=== PATIENT | male | born 1945 | race African-American/Black ===

== ENCOUNTER 2020-12-19 04:13 | Day surgery (SDC) | payer BC, OTHER ==
[2020-12-17 17:36] VITALS: BMI 22.8
[2020-12-19 10:30] LABS: PH,URINE 5.5 (5.0-8.0); URINE APPEARANCE Clear; URINE BILIRUBIN Negative (NEGATIVE); URINE COLOR Yellow; URINE GLUCOSE (UA) Negative (NEGATIVE); URINE KETONE Negative (NEGATIVE); URINE LEUK ESTERASE 1+ (NEGATIVE); URINE NITRITE Negative (NEGATIVE); URINE PROTEIN 1+ (NEGATIVE); URINE UROBILINOGEN 0.2 mg/dL (0.2-1.0)
[2020-12-19] MEDS ORDERED: BACITRACIN 15 GM TUBE TOPICAL OINTMENT ONE (11:22)
[2020-12-19] MEDS ORDERED: MIDAZOLAM HCL 2 MG/2 ML SINGLE DOSE VIAL ONE (12:17)
[2020-12-19] MEDS ORDERED: PROPOFOL 20 ML ONE ×2 (12:17→13:01)
[2020-12-19] MEDS ORDERED: ceFAZolin SODIUM 1 GM VIAL IVPB ONE (12:56)
[2020-12-19] MEDS ORDERED: ceFAZolin SODIUM 1 GM VIAL ONE (12:59)
[2020-12-19] MEDS ORDERED: DEXAMETHASONE SOD PHOSPHATE 4 MG/1 ML VIAL ONE (12:59)
[2020-12-19] MEDS ORDERED: ePHEDrine SULFATE 50 MG/1 ML AMPULE ONE (13:07)
[2020-12-19] MEDS ORDERED: ROCURONIUM BROMIDE 50 MG/5 ML SYRINGE ONE (13:19)
[2020-12-19] MEDS ORDERED: NEOSTIGMINE METHYLSULFATE 0.5 MG/1 ML - 10 ML MDV ONE (13:21)
[2020-12-19] MEDS ORDERED: ONDANSETRON 4 MG/2 ML VIAL IVPUSH PRN (14:10)
[2020-12-19] MEDS ORDERED: oxyCODONE HCL 5 MG TABLET PO PRN (14:10)
[2020-12-19] MEDS ORDERED: LACTATED RINGERS SOLUTION 1,000 ML IV SCH (14:15)
[2020-12-19 17:13] VITALS: BP 158/96; PULSE 60; TEMP 97.6
== END 2020-12-19 17:05 | disposition home or self-care (01) ==
LOC: JASU-SURG 04:13
PROVIDERS: ATTEND Urology
PROC: 0V503ZZ Destruction of Prostate, Percutaneous Approach (ICD-10-PCS; principal; 2020-12-19 12:00)
DX: C61 Malignant neoplasm of prostate (principal)
CPT/HCPCS: 55873; C2618; 81003; 94760